=== PATIENT | female | born 1995 | race Caucasian/White ===

== ENCOUNTER 2017-01-23 15:45 | Emergency (ER) | payer OTHER, SELFPAY ==
[2017-01-23 18:25] LABS: #Lymphocytes 1.6 thou/uL (1.20-3.40); #Monocytes 0.6 thou/uL (0.11-0.59); #Neutrophils 11.5 thou/uL (1.40-6.50); %Basophils 0.2 % (0.0-1.0); %Eosinophils 0.2 % (0.0-10.0); %Lymphocytes 11.5 % (28.0-48.0); %Monocytes 4.3 % (0.0-4.0); Hematocrit 38.9 % (36.0-47.0); Mean Platelet Volume 7.1 fL (7.4-10.4); White Blood Cell (WBC) Count 13.7 thou/uL (4.8-10.8)
[2017-01-23] MEDS ORDERED: Morphine 2 mg/2ml in 0.9% NaCl PF SYRINGE ONE (21:47)
[2017-01-23 21:51] LABS: Bilirubin Negative (Negative); Blood, Urine Large (Negative); Glucose, Urine (Dipstick) Negative (Negative); Ketone, Urine Trace mg/dL (Negative); Nitrite Negative (Negative); Protein, Urine (Dipstick) Negative (Neg-Trace); Urobilinogen 0.2 mg/dL (0.2-1.0)
[2017-01-23 21:52] LABS: Bacteria/HPF None Seen HPF (None Seen); Hyaline Casts/LPF 0-3 HYALINE CAST LPF (0-3 Hyaline); RBC/HPF GREATER THAN 50-TNTC HPF (0-3); Squamous Epithelial 0-3 HPF (0-3); WBC/HPF 21-50 HPF (0-3)
[2017-01-23 22:53] LABS: ALT (SGPT) 15 U/L (8-55); AST (SGOT) 16 U/L (5-30); Alkaline Phosphatase 81 U/L (40-150); Anion Gap 11 mmol/L (10-20); BUN (Urea Nitrogen) 12 mg/dL (8.4-21.0); Bilirubin, Total 0.4 mg/dL (0.2-1.2); Calc. Creatinine Clearance 0 mL/min (70-130); Calcium 9.4 mg/dL (7.8-10.44); Carbon Dioxide 23 mmol/L (22-29); Chloride 106 mmol/L (98-107); Estimated GFR-MDRD Greater than 90; Globulin 3.1 g/dL (2.4-3.5); Lipase 34 U/L (8-78); Protein, Total 7.5 g/dL (6.0-8.3)
== END 2017-01-24 00:12 | disposition home or self-care (01) ==
LOC: ERS 15:45
DX: N30.01 Acute cystitis with hematuria (principal)
CPT/HCPCS: 36415; 80053; 81003; 81015; 83690; 84703; 85025; 87480; 87491; 87510; 87591; 87660; 96361; 96374; J2270

== ENCOUNTER 2017-09-14 21:58 | Emergency (ER) | payer SELFPAY ==
[2017-09-14] MEDS ORDERED: Dexamethasone 10 MG/ML VIAL ONE (22:40)
[2017-09-14] MEDS ORDERED: Famotidine 20 MG TAB ONE (22:40)
[2017-09-14] MEDS ORDERED: hydrOXYzine 25 MG TAB ONE (22:40)
== END 2017-09-14 23:28 | disposition home or self-care (01) ==
LOC: ERS 21:58
DX: T63.461A Toxic effect of venom of wasps, accidental (unintentional), initial encounter (principal)
CPT/HCPCS: 99283; J1100

== ENCOUNTER 2018-01-02 17:01 | Emergency (ER) | payer SELFPAY | END 2018-01-02 17:39 | disposition home or self-care (01) | LOC: SCSER 17:01 | DX: B34.9 Viral infection, unspecified (principal) | CPT/HCPCS: 87081; 87430; 87804; 99283 ==

== ENCOUNTER 2018-03-08 09:01 | Emergency (ER) | payer SELFPAY | END 2018-03-08 09:16 | disposition left against medical advice (07) | LOC: ERS 09:01 | DX: Z53.21 Procedure and treatment not carried out due to patient leaving prior to being seen by health care provider (principal) ==

== ENCOUNTER 2019-11-11 19:03 | Inpatient (IN) | payer OTHER ==
[2019-11-11 19:42] LABS: #Lymphocytes 1.7 thou/uL (1.20-3.40); %Basophils 0.2 % (0.0-1.0); %Eosinophils 0.3 % (0.0-10.0); %Lymphocytes 12.3 % (21.0-51.0); %Monocytes 6.9 % (0.0-10.0); %Neutrophils 80.4 % (42.0-75.0); Hemoglobin 11.3 g/dL (12.0-16.0); Mean Corpuscular HGB CONC 34.9 g/dL (32.0-36.0); Mean Corpuscular Hemoglobin 30.7 pg (27.0-31.0); Mean Platelet Volume 7.5 fL (7.4-10.4); Platelet Count 333 thou/uL (130-400); RBC Distribution Width 12.2 % (11.5-14.5); Red Blood Cell (RBC) Count 3.68 mill/uL (4.20-5.40); White Blood Cell (WBC) Count 13.7 thou/uL (4.8-10.8)
[2019-11-11 20:09] LABS: ALT (SGPT) 14 U/L (8-55); AST (SGOT) 28 U/L (5-34); Albumin 3.3 g/dL (3.5-5.0); Alkaline Phosphatase 93 U/L (40-110); Anion Gap 15 mmol/L (10-20); BUN (Urea Nitrogen) 5 mg/dL (7.0-18.7); Bilirubin, Total 0.2 mg/dL (0.2-1.2); Calc. Creatinine Clearance 0 mL/min (70-130); Calcium 8.4 mg/dL (7.8-10.44); Carbon Dioxide 20 mmol/L (22-29); Chloride 103 mmol/L (98-107); Estimated GFR-MDRD Greater than 90; Globulin 3.6 g/dL (2.4-3.5); Glucose 82 mg/dL (70-105); Potassium 4.5 mmol/L (3.5-5.1); Protein, Total 6.9 g/dL (6.0-8.3); Sodium 133 mmol/L (136-145)
[2019-11-11] MEDS ORDERED: cefTRIAXone\\ROCEPHIN 1 GM VIAL ONE (20:09)
[2019-11-11 20:32] LABS: Bacteria/HPF 3+ HPF (None Seen); Bilirubin Negative (Negative); Blood, Urine Negative (Negative); Clarity Turbid (Clear); Glucose, Urine (Dipstick) Normal (Negative); Ketone, Urine Negative (Negative); Leukocyte 500 Leu/uL (Negative); Nitrite Negative (Negative); Protein, Urine (Dipstick) 10 mg/dL (Neg-Trace); Renal Epithelial 0-3 HPF (None Seen); Specific Gravity, Urine 1.008 (1.002-1.036); Urobilinogen Normal mg/dL (Less than 2); WBC/HPF Greater than 50 HPF (0-3); pH, Urine 7.5 (5.0-9.0)
--- NOTE | 2019-11-11 20:59 | ULT ---
BILATERAL RENAL ULTRASOUND COMPLETE: 11/11/19 HISTORY: Left flank pain. The patient is approximately 25 weeks with lower left back pain. FINDINGS: Left kidney measures 11.3 x 5.8 x 4.7 cm. Right kidney measures 10.9 x 4.6 x 5.5 cm. Prevoid bladder volume equals 332 mL. Very mild dilatation of the right ureter and upper collecting system. No left s ided renal hydronephrosis. No renal calculi were seen. Bilateral ureteral jets were demonstrated with in the bladder. IMPRESSION: Mild dilatation of the right ureter and upper collecting system. No evidence for overt calculus. No evidence for left sided renal hydronephrosis. Bilateral ureteral jets. POS: RRE
[2019-11-11] MEDS ORDERED: Ondansetron PF 4 MG/2 ML Vial IVP PRN (21:11)
[2019-11-11] MEDS ORDERED: Acetaminophen 500 MG TAB PO PRN (21:11)
[2019-11-11] MEDS ORDERED: Promethazine HCl 25 MG/ML VIAL IM PRN (21:11)
--- NOTE | 2019-11-11 21:30 | PDOC.LDHP ---
Labor and Delivery H&P Chief complaint: other HPI: 24 y/o G1 at 25w0d patient of Dr. Espino, presents with complaints of dysuria and left flank pain. Reports she was diagnosed with a UTI at [facility] and took Cefadroxil for 5 days but her symptoms started to worsen over the last couple days and developed flank pain. Had a fever up to 102 at home. Denies VB, LOF, ctx. Has had less FM since she has been having her symptoms. ROS neg for HEENT, CV, pulm, GI, , neuro, psych, skin, musculoskeletal, or constitutional symptoms other than mentioned above. OB History Details: First Current complications: other (recurrent UTIs) Past Medical History: Recurrent UTIs Current medications: pre- vitamins Previous surgical history: other (tonsils and adenoids) Allergies/Adverse Reactions: Allergies Allergy/AdvReac Type Severity Reaction Status Date / Time clindamycin Allergy Unverified 11/11/19 21:20 Social history: none - Physical Exam Vital signs reviewed and normal: yes General: NAD, resting Lungs: nonlabored breathing Abdomen: gravid (Left sided CVA tenderness) Extremeties: no edema FHT: category 1 (150s, mod variability, + accels, no decels) - Assessment 24 y/o G1 at 25w0d with likely pyelonephritis with clinical presentation of UTI sx, flank pain, and fever. UA from ED was clean catch and contaminated. status reassuring with reactive NST. - Plan -: Admit for IV antibiotics. Will repeat UA/UC with cath specimen to get more accurate culture and sensitivity. Dr. Espino notified.
[2019-11-11] MEDS ORDERED: Butorphanol Tartrate 1 MG/ML VIAL SLOW IVP PRN (22:40)
[2019-11-11] MEDS: Sodium Chloride 0.9% 1,000 ML IV SCH (23:30)
[2019-11-11] MEDS: Acetaminophen 500 MG TAB PO SCH (23:30)
[2019-11-11 23:43] VITALS: BP 106/55; TEMP 99.6; BMI 24.0
[2019-11-12 00:04] LABS: Bacteria/HPF None Seen HPF (None Seen); Bilirubin Negative (Negative); Blood, Urine Negative (Negative); Clarity Clear (Clear); Glucose, Urine (Dipstick) Normal (Negative); Ketone, Urine 20 mg/dL (Negative); Leukocyte 500 Leu/uL (Negative); Nitrite Negative (Negative); Protein, Urine (Dipstick) Negative (Neg-Trace); RBC/HPF 0-3 HPF (0-3); Specific Gravity, Urine 1.005 (1.002-1.036); Squamous Epithelial 0-3 HPF (0-3); Urobilinogen Normal mg/dL (Less than 2); WBC/HPF 21-50 HPF (0-3)
[2019-11-12 00:08] LABS: Urine Culture Reflex Yes Yes
[2019-11-12] MEDS: Acetaminophen 500 MG TAB PO SCH ×3 (09:05→21:51)
[2019-11-12] MEDS: Sodium Chloride 0.9% 1,000 ML IV SCH ×3 (11:40→20:16)
[2019-11-12 12:00] LABS: SARS-CoV-2 MS2 Positive; SARS-CoV-2 N Gene Negative; SARS-CoV-2 S Gene Negative; SARS-CoV-2 by NAA Not Detected (NotDetected); SARS-CoV-2 orf1ab Negative
[2019-11-12] MEDS ORDERED: cefTRIAXone\\ROCEPHIN 2 GM in Sodium Chloride 0.9% 100 ML IVPB SCH (20:00)
[2019-11-13] MEDS: Acetaminophen 500 MG TAB PO SCH (09:23)
[2019-11-13 12:41] LABS: #Basophils 0.1 thou/uL (0.0-0.2); #Lymphocytes 1.4 thou/uL (1.20-3.40); #Monocytes 0.7 thou/uL (0.11-0.59); #Neutrophils 5.7 thou/uL (1.40-6.50); %Basophils 0.7 % (0.0-1.0); %Eosinophils 0.5 % (0.0-10.0); %Lymphocytes 17.3 % (21.0-51.0); %Monocytes 8.9 % (0.0-10.0); %Neutrophils 72.5 % (42.0-75.0); Mean Corpuscular HGB CONC 34.3 g/dL (32.0-36.0); Mean Corpuscular Hemoglobin 30.6 pg (27.0-31.0); Mean Corpuscular Volume 89.1 fL (78.0-98.0); Mean Platelet Volume 6.8 fL (7.4-10.4); Platelet Count 291 thou/uL (130-400); RBC Distribution Width 12.6 % (11.5-14.5); Red Blood Cell (RBC) Count 3.28 mill/uL (4.20-5.40); White Blood Cell (WBC) Count 7.9 thou/uL (4.8-10.8)
[2019-11-13] MEDS: Sodium Chloride 0.9% 1,000 ML IV SCH (13:29)
[2019-11-13] MEDS ORDERED: cefTRIAXone\\ROCEPHIN 1 GM in Sodium Chloride 0.9% 100 ML IVPB SCH (14:00)
== END 2019-11-13 14:23 | disposition home or self-care (01) | DRG 833 ==
LOC: ERS 19:03 → L&D 20:00 → OBSVTOIN 21:15 → L&D 23:20 → UNDOADMOB 23:20
PROVIDERS: ADMIT Obstetrics & Gynecology; ATTEND Obstetrics & Gynecology
DX: O23.02 Infections of kidney in pregnancy, second trimester (principal); Z3A.25 25 weeks gestation of pregnancy; Z20.828 Contact with and (suspected) exposure to other viral communicable diseases
CPT/HCPCS: 36415; 76770; 80053; 81003; 81015; 83605; 85025; 87040; 87077; 87086; 87186; 87635; 96361; 96374; J0696; J3490; U0003

== ENCOUNTER 2020-02-14 12:59 | Inpatient (IN) | payer OTHER ==
[2020-02-14 13:52] VITALS: BMI 26.5
[2020-02-14 14:06] LABS: Amnisure Test RUPTURE DETECTED (No Rupture)
[2020-02-14 14:07] LABS: Amnisure Internal Control QC ACCEPTABLE (ACCEPTABLE)
[2020-02-14] MEDS ORDERED: Promethazine HCl 25 MG/ML VIAL IM PRN (14:49)
[2020-02-14] MEDS ORDERED: Misoprostol 200 MCG TAB PR PRN (14:49)
[2020-02-14] MEDS ORDERED: Acetaminophen 500 MG TAB PO PRN (14:49)
[2020-02-14] MEDS ORDERED: HYDROcodone/Acetaminophen 5/325 mg Tablet PO PRN (14:49)
[2020-02-14] MEDS ORDERED: NS / Oxytocin 40 units/1000ml 1,000 ML IV PRN (14:49)
[2020-02-14] MEDS ORDERED: hydrALAZINE 20 MG/ML VIAL SLOW IVP PRN (14:49)
[2020-02-14] MEDS ORDERED: Diphenoxylate HCl/Atropine Tablet PO PRN (14:49)
[2020-02-14] MEDS ORDERED: Methylergonovine 0.2 MG/ML VIAL IM PRN (14:49)
[2020-02-14] MEDS ORDERED: Butorphanol Tartrate 1 MG/ML VIAL SLOW IVP PRN (14:49)
[2020-02-14] MEDS ORDERED: Lidocaine 1% (PF) 30 ML VIAL SC PRN (14:49)
[2020-02-14] MEDS ORDERED: Carboprost 250 MCG/ML AMP IM PRN (14:49)
[2020-02-14] MEDS ORDERED: Ondansetron PF 4 MG/2 ML Vial IVP PRN (14:49)
--- NOTE | 2020-02-14 14:55 | PDOC.LDHP ---
Labor and Delivery H&P Chief complaint: loss of fluid HPI: 24yo presents to L&D for leakage of fluid that started at 11:30am this morning followed by a subsequent gush of fluid that leaked onto the floor. She otherwise has no new complaints. She is having occasional contractions. She endorses movement. She denies fever, chills, nausea, vomiting, diarrhea, vaginal bleeding. Current gestational age (weeks): 38 (4d) Due date: 02/24/20 Dating criteria: last menstrual period, first trimester ultrasound Grav: 1 Para: 0 OB History Details: Anemia of Recurrent UTIs and pyelonephritis Abnormal US findings: No Past Medical History: Bipolar depression Current medications: pre- vitamins, iron Previous surgical history: none Allergies/Adverse Reactions: Allergies Allergy/AdvReac Type Severity Reaction Status Date / Time clindamycin Allergy Severe Anaphylaxis Verified 02/14/20 13:47 Social history: none - Physical Exam Vital signs reviewed and normal: yes General: NAD, resting, breathing through contractions Heart: RRR Lungs: nonlabored breathing Abdomen: NTTP Extremeties: no edema FHT: category 1 [place] contractions every: 3 min - Vaginal Exam cm dilated: 1 Effacement: 75% Station: -2 - OB Labs GBS: negative - Assessment L&D Assessment: term rupture in membranes - Plan Plan: admit to L&D, labor augmentation if indicated -: Term sIUP, SROM - SROM @ 11:30. - GBS negative per Dr. Espino. - Awaiting faxed records. - Admit to L&D. - Per Kenzie, next check around 6pm and will augment if indicated. Expectant management of labor. Discussed plan with Dr. Espino attending. Shaniqua KENNY PGY2
[2020-02-14] MEDS ORDERED: NS w/ Oxytocin 30 units 500 ML IVPB SCH (15:00)
[2020-02-14] MEDS ORDERED: NS w/ Oxytocin 30 units 500 ML IV PRN (15:01)
[2020-02-14 15:09] LABS: Hemoglobin 10.5 g/dL (12.0-16.0); Mean Corpuscular HGB CONC 32.8 g/dL (32.0-36.0); Mean Corpuscular Hemoglobin 25.9 pg (27.0-31.0); Mean Corpuscular Volume 79.1 fL (78.0-98.0); Mean Platelet Volume 7.2 fL (7.4-10.4); Platelet Count 329 thou/uL (130-400); RBC Distribution Width 14.8 % (11.5-14.5); Red Blood Cell (RBC) Count 4.04 mill/uL (4.20-5.40)
[2020-02-14 15:36] LABS: HBSAg Index 0.23 S/CO (0-0.99); Hep B Surf Ag Non-Reactive S/CO (NonReactive)
[2020-02-14 15:40] LABS: Syphilis Antibody Nonreactive (Nonreactive); Syphilis Antibody Index 0.02 S/CO (<1.00 Non-Reactive)
[2020-02-14] MEDS: Lactated Ringer's 1,000 ML IV SCH (20:15)
[2020-02-14 23:55] LABS: SARS-CoV-2 MS2 Positive; SARS-CoV-2 N Gene Negative; SARS-CoV-2 S Gene Negative; SARS-CoV-2 by NAA Not Detected (NotDetected); SARS-CoV-2 orf1ab Negative
[2020-02-15] MEDS ORDERED: Fentanyl 4 mcg/Bup 0.1% Cadd 100 ML ONE ×2 (02:02→09:55)
[2020-02-15] MEDS ORDERED: Lactated Ringer's 500 ML IV PRN (02:40)
[2020-02-15] MEDS ORDERED: Acetaminophen 325 MG TAB PO PRN ×2 (02:40→13:10)
[2020-02-15] MEDS ORDERED: Ondansetron PF 4 MG/2 ML Vial IVP PRN ×2 (02:40→13:09)
[2020-02-15] MEDS ORDERED: ePHEDrine 50 MG/ML VIAL SLOW IVP PRN (02:40)
[2020-02-15] MEDS ORDERED: Naloxone HCl 0.4 mg/ml Vial IVP PRN ×2 (02:40)
[2020-02-15] MEDS ORDERED: diphenhydrAMINE 50 MG/ML VIAL IVP PRN (02:40)
[2020-02-15] MEDS ORDERED: Promethazine HCl 25 MG/ML VIAL IM PRN (02:40)
[2020-02-15] MEDS ORDERED: Fentanyl 4 mcg/Bupivacaine 0.1% Cassette 100 ML EPIDURAL SCH (02:45)
[2020-02-15] MEDS ORDERED: Communication Order-Pharmacy FS SCH (02:45)
[2020-02-15] MEDS: Lactated Ringer's 1,000 ML IV SCH ×2 (02:58→19:24)
[2020-02-15] MEDS ORDERED: Adacel (T-DAP) 0.5 ML SYRINGE IM ONE (13:09)
[2020-02-15] MEDS ORDERED: Preparation H Ointment 28 GM TUBE PR PRN (13:09)
[2020-02-15] MEDS ORDERED: diphenhydrAMINE 25 MG CAP PO PRN (13:09)
[2020-02-15] MEDS ORDERED: Lanolin Ointment 7 GM TUBE TOP PRN (13:09)
[2020-02-15] MEDS ORDERED: hydrALAZINE 20 MG/ML VIAL SLOW IVP PRN (13:09)
[2020-02-15] MEDS ORDERED: Misoprostol 200 MCG TAB VAG PRN (13:09)
[2020-02-15] MEDS ORDERED: Bisacodyl 10 MG SUPP PR PRN (13:09)
[2020-02-15] MEDS ORDERED: HYDROcodone/Acetaminophen 5/325 mg Tablet PO PRN ×2 (13:09)
[2020-02-15] MEDS ORDERED: Benzocaine-Menthol 82.5 ML CAN TOP PRN (13:09)
[2020-02-15] MEDS ORDERED: Zolpidem Tartrate 5 MG TAB PO PRN (13:09)
[2020-02-15] MEDS ORDERED: Milk Of Magnesia 30 ML UDCUP PO PRN (13:09)
[2020-02-15] MEDS ORDERED: NS w/ Oxytocin 30 units 500 ML IV SCH (13:30)
[2020-02-15] MEDS: Ferrous Sulfate 325 MG TAB PO SCH (18:01)
[2020-02-15] MEDS: Ibuprofen 800 MG TAB PO SCH ×2 (18:01→20:16)
[2020-02-15] MEDS: Docusate Calcium (SURFAK) 240 MG CAP PO SCH (20:16)
[2020-02-16 04:46] LABS: Band 50 % (5-11); Hypochromia SLIGHT = 6-15 cells (100X) (0-5/hpf); Lymphocytes 2 % (21-51); MDiff Complete? YES; Mean Corpuscular HGB CONC 32.9 g/dL (32.0-36.0); Mean Corpuscular Hemoglobin 26.2 pg (27.0-31.0); Mean Corpuscular Volume 79.6 fL (78.0-98.0); Mean Platelet Volume 6.9 fL (7.4-10.4); Monocytes 6 % (0-10); Neutrophil 42 % (42-75); Platelet Count 231 thou/uL (130-400); Platelet Morphology Comment Appears Adequate; Red Blood Cell (RBC) Count 3.43 mill/uL (4.20-5.40); Reflex for Review?? YES; White Blood Cell (WBC) Count 23.7 thou/uL (4.8-10.8)
[2020-02-16] MEDS ORDERED: Sodium Chloride 0.9% 10 ML ONE ×2 (05:24→22:43)
[2020-02-16] MEDS: Ibuprofen 800 MG TAB PO SCH ×3 (05:30→21:43)
[2020-02-16] MEDS ORDERED: Lactated Ringer's 1,000 ML IV SCH (05:30)
[2020-02-16] MEDS: Docusate Calcium (SURFAK) 240 MG CAP PO SCH ×2 (07:58→21:43)
[2020-02-16] MEDS: Ferrous Sulfate 325 MG TAB PO SCH ×2 (07:58→16:49)
[2020-02-16] MEDS: Prenatal Vitamin 1 TAB PO SCH (07:58)
[2020-02-16] MEDS: CEFAZOLIN 2 GM in Premix Bag 1 BAG IVPB SCH ×2 (09:06→16:45)
[2020-02-16] MEDS: Dextrose 5%-Lactated Ringers 1,000 ML IV SCH ×2 (09:06→16:45)
[2020-02-17] MEDS: CEFAZOLIN 2 GM in Premix Bag 1 BAG IVPB SCH ×2 (00:08→08:05)
[2020-02-17] MEDS: Dextrose 5%-Lactated Ringers 1,000 ML IV SCH ×2 (00:09→11:04)
[2020-02-17] MEDS: Ibuprofen 800 MG TAB PO SCH (06:13)
[2020-02-17] MEDS: Ferrous Sulfate 325 MG TAB PO SCH (08:05)
[2020-02-17] MEDS: Prenatal Vitamin 1 TAB PO SCH (08:05)
[2020-02-17] MEDS: Docusate Calcium (SURFAK) 240 MG CAP PO SCH (08:05)
[2020-02-17 12:11] VITALS: BP 117/57; TEMP 97.8
== END 2020-02-17 12:55 | disposition home or self-care (01) | DRG 807 ==
LOC: L&D/OP 12:59 → L&D 14:50 → 3SW 02-15 16:44
PROVIDERS: ADMIT Family Medicine; ATTEND Obstetrics & Gynecology
PROC: 10E0XZZ Delivery of Products of Conception, External Approach (ICD-10-PCS; principal; 2020-02-15)
PROC: 0KQM0ZZ Repair Perineum Muscle, Open Approach (ICD-10-PCS; 2020-02-15)
DX: O70.1 Second degree perineal laceration during delivery (principal); Z37.0 Single live birth; Z3A.38 38 weeks gestation of pregnancy; Z87.440 Personal history of urinary (tract) infections; Z20.822 Contact with and (suspected) exposure to COVID-19
CPT/HCPCS: 36415; 84112; 85025; 85027; 85060; 86780; 86850; 86900; 86901; 87340; 87635; J0690; J2590; U0003

== ENCOUNTER 2020-02-18 17:48 | Emergency (ER) | payer OTHER ==
[~2020-02-18 17:48] MED LIST: Iopamidol-370 76% 500 ML 1 ML ONE
[2020-02-18 18:39] LABS: #Eosinphils 0.2 thou/uL (0.0-0.7); #Lymphocytes 1.4 thou/uL (1.20-3.40); #Monocytes 0.5 thou/uL (0.11-0.59); #Neutrophils 9.5 thou/uL (1.40-6.50); %Basophils 0.1 % (0.0-1.0); %Eosinophils 1.4 % (0.0-10.0); %Lymphocytes 12.2 % (21.0-51.0); %Monocytes 3.9 % (0.0-10.0); %Neutrophils 82.5 % (42.0-75.0); Hemoglobin 9.3 g/dL (12.0-16.0); Mean Corpuscular HGB CONC 32.4 g/dL (32.0-36.0); Mean Corpuscular Hemoglobin 25.9 pg (27.0-31.0); Mean Platelet Volume 7.1 fL (7.4-10.4); Platelet Count 339 thou/uL (130-400); RBC Distribution Width 14.8 % (11.5-14.5); Red Blood Cell (RBC) Count 3.58 mill/uL (4.20-5.40); White Blood Cell (WBC) Count 11.5 thou/uL (4.8-10.8)
--- NOTE | 2020-02-18 18:46 | RAD ---
2 view chest: [02/18/2020] Comparison:01/11/2012 HISTORY: Shortness of breath and chest pain FINDINGS: There is no focal consolidation or alveolar edema. Heart and mediastinal contours are stabl e. Slight blunting of the costophrenic angles on the lateral examination suggested presence of possible small bilateral pleural effusions. There is mild hazy interstitial density in the lung bases medially, left greater than right, new when compared to the prior examination. IMPRESSION: Hazy density in the lung bases with probable tiny bilateral pleural effusions. Findings m ay be related to edema and/or nonspecific infectious pneumonitis.
[2020-02-18 19:01] LABS: ALT (SGPT) 10 U/L (8-55); AST (SGOT) 16 U/L (5-34); Albumin 2.7 g/dL (3.5-5.0); Alkaline Phosphatase 164 U/L (40-110); Anion Gap 12 mmol/L (10-20); BUN (Urea Nitrogen) 6 mg/dL (7.0-18.7); Bilirubin, Total 0.2 mg/dL (0.2-1.2); Calc. Creatinine Clearance 0 mL/min (70-130); Calcium 8.3 mg/dL (7.8-10.44); Carbon Dioxide 23 mmol/L (22-29); Chloride 109 mmol/L (98-107); Globulin 2.9 g/dL (2.4-3.5); Glucose 93 mg/dL (70-105); Potassium 3.1 mmol/L (3.5-5.1); Protein, Total 5.6 g/dL (6.0-8.3); Sodium 141 mmol/L (136-145)
[2020-02-18] MEDS ORDERED: Potassium Chloride 20 MEQ TAB ONE ×2 (19:43→19:44)
--- NOTE | 2020-02-18 19:51 | ULT ---
Bilateral lower extremity venous Doppler ultrasound: 02/18/2020 COMPARISON: None HISTORY: Edema, swelling, assess for DVT TECHNIQUE: Multiplanar grayscale sonographic imaging of the venous structures of bilateral lower extr emities obtained with color flow and spectral analysis FINDINGS: Bilateral common femoral veins, greater saphenous veins, profunda femoral veins, femoral ve ins, popliteal veins, and posterior tibial veins are patent. There is normal blood flow, augmentation, and compression within the deep venous system bilaterally. No evidence for DVT on eithe r side IMPRESSION: No evidence for deep venous thrombosis of either lower extremity.
--- NOTE | 2020-02-18 22:42 | CT ---
CT angiogram of the chest: 02/18/2020 COMPARISON: None HISTORY: Chest pain and shortness of breath, recent childbirth TECHNIQUE: Axial CT imaging at 2.5 mm intervals through the chest with IV contrast using CT angiogram protocol. Coronal and oblique sagittal 3-D reformatted imaging obtained. FINDINGS: The imaged upper abdomen demonstrates no acute findings. There are small bilateral pleural effusions. There is no axillary, hilar, or mediastinal lymphadenopathy. The imaged aorta demonstrates no acute findings. There is no evidence for acute pulmonary arterial em bolism. No endobronchial lesion is appreciated. There is minimal atelectasis within the lower lobes adjacent to the small bilateral pleural effusions . The lung parenchyma appears grossly unremarkable bilaterally otherwise. There is minimal gas within the posterior epidural space suggesting recent epidural anesthesia given history of recent del laurence. No acute osseous abnormality. IMPRESSION: Nonspecific small bilateral pleural effusions. No evidence for pulmonary arterial embolis m.
--- NOTE | 2020-02-21 11:19 | EKG ---
Test Reason : Blood Pressure : / mmHG Vent. Rate : 076 BPM Atrial Rate : 076 BPM P-R Int : 126 ms QRS Dur : 086 ms QT Int : 354 ms P-R-T Axes : 058 065 041 degrees QTc Int : 398 ms Normal sinus rhythm Cannot rule out Anterior infarct , age undetermined Abnormal ECG Confirmed by TOYA ROJAS ([id number]), copy editor REENA OJEDA ([id number]) on 02/21/2020 11:19:22 AM Referred By: Confirmed By:TOYA ROJAS
== END 2020-02-18 23:35 | disposition home or self-care (01) ==
LOC: ERS 17:48
DX: R07.9 Chest pain, unspecified (principal)
CPT/HCPCS: 36415; 71046; 71275; 80053; 83880; 84484; 85025; 93005; 93970; Q9967